=== PATIENT | male | born 1980 | race African-American/Black ===

== ENCOUNTER 2017-08-08 04:57 | Inpatient (IN) ==
[2017-08-08] MEDS ORDERED: ASPIRIN 325 MG TABLET PO STA (05:19)
[2017-08-08] MEDS ORDERED: FUROSEMIDE 100 MG/10 ML VIAL IV STA (05:19)
[2017-08-08] MEDS ORDERED: MORPHINE 4 MG/1 ML VIAL IV STA (05:19)
[2017-08-08] MEDS ORDERED: methylPREDNISolone SOD SUC 125 MG/2 ML VIAL IV STA (05:19)
[2017-08-08] MEDS ORDERED: ALBUTEROL 2.5 MG/3 ML NEB RESP TX SCH (05:30)
[2017-08-08 05:47] LABS: Basophils # 0.1 10*3/uL (0.0-0.2); Basophils % 1.4 % (0.0-0.8); Eosinophils # 0.2 10*3/uL (0.0-0.87); Eosinophils % 4.2 % (0.00-10.9); Hemoglobin 11.3 GM/DL (14.0-18.0); Immature Granulocytes % 0.3 %; Immature Granulocytes Absolute 0.01 #; Lymphocytes # 0.8 10*3/uL (1.4-4.0); Lymphocytes % 21.2 % (21.2-54.2); Mean Corpuscular HGB Conc 30.5 GM/DL (32-36); Mean Corpuscular Hemoglobin 28 PG (27-34); Mean Platelet Volume 11.6 FL (9.6-12.0); Monocytes # 0.2 10*3/uL (0.11-0.8); Monocytes % 6.4 % (1.7-12.7); Neutrophils # 2.4 10*3/uL (1.4-7.4); Neutrophils % 66.5 % (38.7-73.9); Platelet Count 116 T/CUMM (130-400); Red Blood Count 3.98 MC/CUMM (3.8-5.5); Red Cell Distribution Width 18.9 % (9.3-17.3); White Blood Count 3.6 T/CUMM (4-12)
[2017-08-08 06:04] LABS: INR 2.8
[2017-08-08 06:06] LABS: Albumin 3.1 G/DL (3.4-5.0); Bilirubin,Total 0.7 MG/DL (0.2-1.0); Calcium 6.1 MG/DL (8.5-10.1); Osmolality,Calculated 280.8 MOS/KG (273-304); Potassium 4.8 MMOL/L (3.5-5.1); Total Protein 8.2 G/DL (6.4-8.3); Troponin I Only 0.039 NG/ML (0.00-0.045)
[2017-08-08 06:14] LABS: PT Patient Result 28.2 SECS
[2017-08-08] MEDS ORDERED: DEXTROSE 50% 25 GM/50 ML SYRINGE IV ONE (06:30)
[2017-08-08] MEDS ORDERED: DEXTROSE 50% 25 GM/50 ML VIAL IV STA (06:30)
[2017-08-08] MEDS ORDERED: FUROSEMIDE 40 MG/4 ML VIAL ONE (07:09)
[2017-08-08] MEDS ORDERED: DOCUSATE SODIUM 100 MG CAPSULE PO PRN (08:11)
[2017-08-08] MEDS: PANTOPRAZOLE 40 MG TABLET PO SCH (09:43)
[2017-08-08] MEDS ORDERED: diphenhydrAMINE CAP 50 MG CAPSULE PO ONE (12:13)
[2017-08-08] MEDS ORDERED: diphenhydrAMINE CAP 50 MG CAPSULE ONE (12:16)
[2017-08-08] MEDS ORDERED: HEPARIN 10,000 UNIT/10 ML VIAL IV SCH (14:30)
[2017-08-08] MEDS: CALCITRIOL 0.5 MCG CAPSULE PO SCH (21:34)
[2017-08-08] MEDS: CALCIUM (CARBONATE) 500 MG TABLET PO SCH (21:35)
[2017-08-09] MEDS ORDERED: NITROGLYCERIN SL 0.4 MG TABLET SL ONE (04:19)
[2017-08-09] MEDS ORDERED: MORPHINE 10 MG/1 ML VIAL ONE (04:24)
[2017-08-09] MEDS ORDERED: ONDANSETRON 4 MG/2 ML VIAL ONE (04:25)
[2017-08-09 04:43] LABS: Hematocrit 32.8 VOL% (42.0-52.0); Hemoglobin 9.9 GM/DL (14.0-18.0); Immature Granulocytes % 0.5 %; Immature Granulocytes Absolute 0.02 #; Lymphocytes # 0.2 10*3/uL (1.4-4.0); Lymphocytes % 5.7 % (21.2-54.2); Mean Corpuscular HGB Conc 30.2 GM/DL (32-36); Mean Corpuscular Hemoglobin 28 PG (27-34); Mean Corpuscular Volume 93.7 FL (87-102); Mean Platelet Volume 9.5 FL (9.6-12.0); Monocytes # 0.1 10*3/uL (0.11-0.8); Monocytes % 3.3 % (1.7-12.7); Neutrophils # 3.8 10*3/uL (1.4-7.4); Neutrophils % 90.5 % (38.7-73.9); Platelet Count 92 T/CUMM (130-400); Red Cell Distribution Width 18.6 % (9.3-17.3); White Blood Count 4.2 T/CUMM (4-12)
[2017-08-09 04:52] LABS: Calcium 6.7 MG/DL (8.5-10.1); Osmolality,Calculated 282.7 MOS/KG (273-304); Potassium 4.8 MMOL/L (3.5-5.1)
[2017-08-09 05:02] LABS: Hypochromasia 1+; Ovalocytes Slight; Platelet Estimate Decreased
[2017-08-09] MEDS: PANTOPRAZOLE 40 MG TABLET PO SCH (09:00)
[2017-08-09] MEDS: CALCIUM (CARBONATE) 500 MG TABLET PO SCH ×2 (09:00→20:56)
[2017-08-09] MEDS: CALCITRIOL 0.5 MCG CAPSULE PO SCH ×2 (09:00→20:56)
[2017-08-09] MEDS ORDERED: PHYTONADIONE 10 MG/1 ML AMP IV ONE (12:02)
[2017-08-10 06:28] LABS: INR 1.4; PT Patient Result 14.7 SECS
[2017-08-10] MEDS ORDERED: diphenhydrAMINE CAP 25 MG CAPSULE PO ONE (08:57)
[2017-08-10] MEDS: PANTOPRAZOLE 40 MG TABLET PO SCH (09:29)
[2017-08-10] MEDS: CALCITRIOL 0.5 MCG CAPSULE PO SCH ×2 (09:29→21:28)
[2017-08-10] MEDS: CALCIUM (CARBONATE) 500 MG TABLET PO SCH ×2 (09:29→21:28)
[2017-08-10] MEDS: HEPARIN DRIP 25,000 UNITS/500 ML PREMIX IV SCH (14:26)
[2017-08-10] MEDS: ALPRAZolam 0.5 MG TABLET PO SCH (22:09)
[2017-08-11 02:43] LABS: Basophils % 0.5 % (0.0-0.8); Eosinophils # 0.1 10*3/uL (0.0-0.87); Hemoglobin 10.9 GM/DL (14.0-18.0); Immature Granulocytes % 0.5 %; Immature Granulocytes Absolute 0.02 #; Lymphocytes # 0.7 10*3/uL (1.4-4.0); Lymphocytes % 16.5 % (21.2-54.2); Mean Corpuscular HGB Conc 30.3 GM/DL (32-36); Mean Corpuscular Hemoglobin 29 PG (27-34); Mean Corpuscular Volume 94.7 FL (87-102); Mean Platelet Volume 11.4 FL (9.6-12.0); Monocytes # 0.3 10*3/uL (0.11-0.8); Monocytes % 6.3 % (1.7-12.7); NRBC # 0.03 10*3/uL; Neutrophils # 2.9 10*3/uL (1.4-7.4); Neutrophils % 73.2 % (38.7-73.9); Platelet Count 101 T/CUMM (130-400); Red Cell Distribution Width 19.3 % (9.3-17.3)
[2017-08-11 03:03] LABS: Calcium 7.2 MG/DL (8.5-10.1); Osmolality,Calculated 275.2 MOS/KG (273-304); Potassium 4.2 MMOL/L (3.5-5.1)
[2017-08-11] MEDS: ALPRAZolam 0.5 MG TABLET PO SCH ×2 (09:33→20:20)
[2017-08-11] MEDS: PANTOPRAZOLE 40 MG TABLET PO SCH (09:33)
[2017-08-11] MEDS: CALCITRIOL 0.5 MCG CAPSULE PO SCH ×2 (09:33→20:20)
[2017-08-11] MEDS: HEPARIN DRIP 25,000 UNITS/500 ML PREMIX IV SCH ×2 (09:33→20:19)
[2017-08-11] MEDS: CALCIUM (CARBONATE) 500 MG TABLET PO SCH ×2 (09:33→20:20)
[2017-08-12 05:36] LABS: Basophils % 0.8 % (0.0-0.8); Eosinophils # 0.2 10*3/uL (0.0-0.87); Hematocrit 33.9 VOL% (42.0-52.0); Hemoglobin 10.2 GM/DL (14.0-18.0); Immature Granulocytes % 0.5 %; Immature Granulocytes Absolute 0.02 #; Lymphocytes # 0.6 10*3/uL (1.4-4.0); Lymphocytes % 16.7 % (21.2-54.2); Mean Corpuscular HGB Conc 30.1 GM/DL (32-36); Mean Corpuscular Hemoglobin 28 PG (27-34); Mean Corpuscular Volume 93.6 FL (87-102); Mean Platelet Volume 10.8 FL (9.6-12.0); Monocytes # 0.4 10*3/uL (0.11-0.8); Monocytes % 10.3 % (1.7-12.7); NRBC # 0.07 10*3/uL; Neutrophils # 2.5 10*3/uL (1.4-7.4); Neutrophils % 66.7 % (38.7-73.9); Platelet Count 91 T/CUMM (130-400); Red Blood Count 3.62 MC/CUMM (3.8-5.5); Red Cell Distribution Width 18.9 % (9.3-17.3); White Blood Count 3.8 T/CUMM (4-12)
[2017-08-12 06:06] LABS: Calcium 7.2 MG/DL (8.5-10.1); Potassium 4.4 MMOL/L (3.5-5.1)
[2017-08-12 06:18] LABS: Anisocytosis 2+; Ovalocytes 1+; Poikilocytosis 2+; Polychromasia 1+
[2017-08-12] MEDS ORDERED: PROMETHAZINE 25 MG TABLET PO PRN (08:27)
[2017-08-12] MEDS: CALCIUM (CARBONATE) 500 MG TABLET PO SCH ×2 (09:41→20:55)
[2017-08-12] MEDS: ALPRAZolam 0.5 MG TABLET PO SCH ×2 (09:41→20:55)
[2017-08-12] MEDS: PANTOPRAZOLE 40 MG TABLET PO SCH (09:41)
[2017-08-12] MEDS: CALCITRIOL 0.5 MCG CAPSULE PO SCH ×2 (09:41→20:55)
[2017-08-12] MEDS: HEPARIN DRIP 25,000 UNITS/500 ML PREMIX IV SCH (18:35)
[2017-08-13 03:08] LABS: Basophils % 0.5 % (0.0-0.8); Eosinophils # 0.2 10*3/uL (0.0-0.87); Eosinophils % 4.9 % (0.00-10.9); Hemoglobin 9.9 GM/DL (14.0-18.0); Immature Granulocytes % 0.8 %; Immature Granulocytes Absolute 0.03 #; Lymphocytes # 0.8 10*3/uL (1.4-4.0); Lymphocytes % 19.7 % (21.2-54.2); Mean Corpuscular HGB Conc 30.9 GM/DL (32-36); Mean Corpuscular Hemoglobin 29 PG (27-34); Mean Platelet Volume 10.1 FL (9.6-12.0); Monocytes # 0.4 10*3/uL (0.11-0.8); Monocytes % 9.6 % (1.7-12.7); NRBC # 0.11 10*3/uL; Neutrophils # 2.5 10*3/uL (1.4-7.4); Neutrophils % 64.5 % (38.7-73.9); Red Blood Count 3.44 MC/CUMM (3.8-5.5); Red Cell Distribution Width 19.3 % (9.3-17.3); White Blood Count 3.9 T/CUMM (4-12)
[2017-08-13 03:11] LABS: Platelet Count 89 T/CUMM (130-400)
[2017-08-13 03:44] LABS: Calcium 7.3 MG/DL (8.5-10.1); Potassium 4.3 MMOL/L (3.5-5.1)
[2017-08-13 03:53] LABS: Ovalocytes 2+; Platelet Estimate Decreased
[2017-08-13 03:54] LABS: Anisocytosis 1+; Microcytosis 1+
[2017-08-13 03:55] LABS: Hypochromasia Slight
[2017-08-13] MEDS ORDERED: diphenhydrAMINE CAP 25 MG CAPSULE ONE (07:46)
[2017-08-13] MEDS ORDERED: diphenhydrAMINE CAP 25 MG CAPSULE PO ONE (07:56)
[2017-08-13] MEDS: HEPARIN DRIP 25,000 UNITS/500 ML PREMIX IV SCH ×2 (08:26→22:17)
[2017-08-13] MEDS: PANTOPRAZOLE 40 MG TABLET PO SCH (13:43)
[2017-08-13] MEDS: CALCITRIOL 0.5 MCG CAPSULE PO SCH ×2 (13:43→20:43)
[2017-08-13] MEDS: CALCIUM (CARBONATE) 500 MG TABLET PO SCH ×2 (13:43→20:43)
[2017-08-13] MEDS: ALPRAZolam 0.5 MG TABLET PO SCH ×2 (13:43→20:43)
[2017-08-14 04:50] LABS: Basophils % 0.5 % (0.0-0.8); Eosinophils # 0.2 10*3/uL (0.0-0.87); Eosinophils % 4.6 % (0.00-10.9); Hematocrit 35.6 VOL% (42.0-52.0); Hemoglobin 10.7 GM/DL (14.0-18.0); Immature Granulocytes Absolute 0.04 #; Lymphocytes # 0.7 10*3/uL (1.4-4.0); Lymphocytes % 17.6 % (21.2-54.2); Mean Corpuscular HGB Conc 30.1 GM/DL (32-36); Mean Corpuscular Hemoglobin 29 PG (27-34); Mean Corpuscular Volume 94.9 FL (87-102); Mean Platelet Volume 11.2 FL (9.6-12.0); Monocytes # 0.4 10*3/uL (0.11-0.8); Monocytes % 9.8 % (1.7-12.7); NRBC # 0.11 10*3/uL; Neutrophils # 2.7 10*3/uL (1.4-7.4); Neutrophils % 66.5 % (38.7-73.9); Platelet Count 102 T/CUMM (130-400); Red Blood Count 3.75 MC/CUMM (3.8-5.5); Red Cell Distribution Width 20.1 % (9.3-17.3); White Blood Count 4.1 T/CUMM (4-12)
[2017-08-14 05:13] LABS: Calcium 7.9 MG/DL (8.5-10.1)
[2017-08-14 07:52] LABS: INR 1.3; PT Patient Result 13.6 SECS
[2017-08-14] MEDS: CALCITRIOL 0.5 MCG CAPSULE PO SCH ×2 (08:49→20:44)
[2017-08-14] MEDS: PANTOPRAZOLE 40 MG TABLET PO SCH (08:50)
[2017-08-14] MEDS: CALCIUM (CARBONATE) 500 MG TABLET PO SCH ×2 (08:50→20:44)
[2017-08-14] MEDS: ALPRAZolam 0.5 MG TABLET PO SCH ×2 (08:50→20:45)
[2017-08-14] MEDS ORDERED: ALBUMIN 25% 12.5 GM in PREMIX 1 EACH IV PRN (12:17)
[2017-08-14] MEDS ORDERED: ALBUMIN 25% 12.5 GM/50 ML VIAL IV ONE (14:16)
[2017-08-14] MEDS: HEPARIN DRIP 25,000 UNITS/500 ML PREMIX IV SCH (17:23)
[2017-08-15 04:58] LABS: Basophils % 0.7 % (0.0-0.8); Eosinophils # 0.2 10*3/uL (0.0-0.87); Eosinophils % 4.7 % (0.00-10.9); Hematocrit 32.6 VOL% (42.0-52.0); Hemoglobin 10.2 GM/DL (14.0-18.0); Immature Granulocytes Absolute 0.04 #; Lymphocytes # 0.6 10*3/uL (1.4-4.0); Lymphocytes % 14.8 % (21.2-54.2); Mean Corpuscular HGB Conc 31.3 GM/DL (32-36); Mean Corpuscular Hemoglobin 29 PG (27-34); Mean Corpuscular Volume 93.1 FL (87-102); Monocytes # 0.6 10*3/uL (0.11-0.8); Monocytes % 15.8 % (1.7-12.7); NRBC # 0.04 10*3/uL; Neutrophils # 2.6 10*3/uL (1.4-7.4); Red Cell Distribution Width 19.8 % (9.3-17.3); White Blood Count 4.1 T/CUMM (4-12)
[2017-08-15 05:03] LABS: Platelet Count 83 T/CUMM (130-400)
[2017-08-15 05:08] LABS: Calcium 7.7 MG/DL (8.5-10.1); Osmolality,Calculated 287.7 MOS/KG (273-304); Potassium 4.5 MMOL/L (3.5-5.1)
[2017-08-15 05:33] LABS: Band Neutrophils 1 % (0-10); Eosinophils 9 % (0-10); Hypochromasia 1+; Lymphocytes 15 % (20-55); Microcytosis 1+; Ovalocytes Slight; Platelet Estimate Decreased; Segmented Neutrophils 63 % (50-85); Target Cells Slight; Tear Drop Cells Slight; Total Cells Counted 100
[2017-08-15 05:43] LABS: INR 1.3; PT Patient Result 13.4 SECS
[2017-08-15] MEDS ORDERED: diphenhydrAMINE CAP 25 MG CAPSULE PO ONE (08:40)
[2017-08-15] MEDS: PANTOPRAZOLE 40 MG TABLET PO SCH (08:58)
[2017-08-15] MEDS: CALCIUM (CARBONATE) 500 MG TABLET PO SCH (08:58)
[2017-08-15] MEDS: CALCITRIOL 0.5 MCG CAPSULE PO SCH (08:58)
[2017-08-15] MEDS: ALPRAZolam 0.5 MG TABLET PO SCH (08:59)
[2017-08-15 14:44] VITALS: BP 95/52
== END 2017-08-15 15:10 | disposition home or self-care (01) | DRG 291 ==
LOC: N.ED 04:57 → N.EDINP 04:57 → N.2W 10:25 → N.TELES 14:21 → SUATTDRO 08-09 10:19
PROVIDERS: ATTEND Internal Medicine